=== PATIENT | female | born 1965 | race Caucasian/White ===

== ENCOUNTER → 2019-04-17 10:57 | Outpatient (CLI) | payer OTHER, SELFPAY ==
--- NOTE | ~2019-04-17 | MR_ITS ---
EXAMINATION: MR brain/brain stem wo/w con DATE: 04/17/2019 12:13 INDICATION: Headache. TECHNIQUE: Magnetic resonance imaging (MRI) of the brain and brainstem was performed without and with 18 mL MultiHance intravenous contrast. Sequences included sagittal and axial T1-weighted FSE, axial diffusion-weighted FS EPI, axial T2*-weighted GRE, axial T2-weighted FLAIR Propeller, and axial T2-we ighted Propeller. Postcontrast sequences included axial and coronal T1-weighted FSE. Apparent diffusi on coefficient (ADC) maps were created. COMPARISON: None. FINDINGS: There is a small acute infarct in right parietal lobe. There are scattered areas of nonspec ific increased T2-weighted signal intensity in the cerebral white matter, which is within normal limi ts for the patient's age. There is no intracranial hemorrhage or abnormal mass lesion. The ventricles are normal in size. The mastoid air cells are normal. There is mild mucosal thickening in the parana vidhya sinuses. The orbits are normal. IMPRESSION: 1. Small acute infarct in right parietal lobe. Reviewed, dictated and finalized at location A.
[2019-04-17 11:49] LABS: Estimated Glomerular Filt Rate > 60
== END ==
PROVIDERS: PCP Internal Medicine; Visit Provider Physician Assistant Medical
DX: R51 Headache (principal); R20.2 Paresthesia of skin
CPT/HCPCS: 36415; 70553; A9577

== ENCOUNTER → 2019-04-20 11:45 | Outpatient (CLI) | payer OTHER, SELFPAY ==
--- NOTE | ~2019-04-20 | US_ITS ---
EXAMINATION: US carotid duplex BI EXAM DATE: 04/20/2019 12:11 INDICATION: Headaches. Stroke. TECHNIQUE: Grayscale, color and pulsed Doppler images of the cervical carotid arteries were obtained . The degree of vessel stenosis is placed in one of the following categories: normal, <50% stenosis, 50-69% stenosis, >=70% stenosis but less than near-occlusion, near-occlusion, or occlusion. Note that percent stenosis relative to normal distal artery lumen diameter is indirectly measured from velocit y measurements as described by Nishant, et al. Radiology 2003; 229:340-346. There is no prior study fo r comparison. FINDINGS: RIGHT SIDE: Right common carotid artery peak systolic velocity (PSV in cm/s): 89 Right bulb/internal carotid artery peak systolic velocity (PSV in cm/s): 124 Right internal carotid artery end diastolic velocity (EDV in cm/s): 45 Right ICA/CCA peak systolic ratio: 1.4 Right external carotid artery peak systolic velocity (PSV in cm/s): 100 Right vertebral artery antegrade flow: yes There is no focal plaque identified. Incidental note made of right thyroid nodule; consider follow-up ultrasound for risk stratification LEFT SIDE: Left common carotid artery peak systolic velocity (PSV in cm/s): 141 Left bulb/internal carotid artery peak systolic velocity (PSV in cm/s): 106 Left internal carotid artery end diastolic velocity (EDV in cm/s): 34 Left ICA/CCA peak systolic ratio: 0.8 Left external carotid artery peak systolic velocity (PSV in cm/s): 107 Left vertebral artery antegrade flow: yes There is no focal plaque identified. IMPRESSION: 1. Normal right internal carotid artery. 2. Normal left internal carotid artery. 3. Incidental right thyroid lobe nodule; consider ultrasound for risk stratification. Reviewed, dictated and finalized at location B. IMPRESSION: 1. Normal right internal carotid artery. 2. Normal left internal carotid artery. 3. Incidental right thyroid lobe nodule; consider ultrasound for risk stratifi cation.
== END ==
PROVIDERS: Visit Provider Physician Assistant Medical
DX: I63.9 Cerebral infarction, unspecified (principal); R51 Headache; E04.1 Nontoxic single thyroid nodule
CPT/HCPCS: 93880

== ENCOUNTER → 2019-05-16 10:41 | Outpatient (CLI) | payer OTHER, SELFPAY ==
--- NOTE | ~2019-05-16 | MM_ITS ---
EXAMINATION: MM screening ja BI w joseph HISTORY: Screening mammogram TECHNIQUE: Craniocaudal and mediolateral oblique 3-D tomosynthesis images were obtained and synthetic 2-D images were generated. CAD analysis was submitted and interpreted. COMPARISON: 03/23/2005 right breast ultrasound examination: Reported negative bilateral digital screening mammogram: Not available from the archive BREAST PARENCHYMAL COMPOSITION: There are scattered areas of fibroglandular density. FINDINGS: There is no evidence of suspicious mass, calcification, or architectural distortion to sugg est malignancy in either breast. There has been no suspicious interval change. IMPRESSION: 1. No mammographic evidence of malignancy. 2. Recommend routine screening mammography in one year. BI-RADS Category 1: Negative Reviewed, dictated and finalized at location A.
--- NOTE | ~2019-05-16 | US_ITS ---
EXAMINATION: US thyroid DATE: 05/16/2019 11:14 INDICATION: Right thyroid nodule. TECHNIQUE: Multiple ultrasound images of the thyroid were obtained. COMPARISON: None. FINDINGS: The right thyroid lobe measures 5.1 x 1.7 x 1.8 cm. The left thyroid lobe measures 4.3 x 1 0.5, 0.7 cm. In the right thyroid lobe, there is a 2.5 cm solid, hypoechoic, jrslt-ylho-hpol nodule with smoo th margin without echogenic foci (TI-RADS TR4). In the right thyroid lobe, there is a 3 mm solid, hy poechoic, lpgwf-pcqy-ewbu nodule with smooth margin without echogenic foci (TR4). IMPRESSION: 1. Thyroid nodules. Ultrasound-guided fine needle aspiration of the 2.5 cm right thyroid nodule is re commended. Reviewed, dictated and finalized at location A. IMPRESSION: 1. Thyroid nodules. Ultrasound-guided fine needle aspiration of the 2.5 cm righ t thyroid nodule is recommended.
== END ==
PROVIDERS: PCP Internal Medicine; Visit Provider Physician Assistant Medical
DX: Z12.31 Encounter for screening mammogram for malignant neoplasm of breast (principal); E04.2 Nontoxic multinodular goiter
CPT/HCPCS: 76536; 77063; 77067

== ENCOUNTER 2020-10-24 02:44 | Day surgery (SDC) | payer OTHER, SELFPAY ==
[2020-10-10 14:19] VITALS: BMI 35.0
[2020-10-24 12:22] VITALS: BP 146/81; PULSE 95; RESP 18; TEMP 36.2; O2SAT 100; BMI 34.9
--- NOTE | 2020-10-24 12:38 | WPDANESEPPF ---
Anes - Initial Pre Proc Eval Procedure: Operation Date: 10/24/20 13:30 Proposed Procedures p Esophagogastroduodenoscopy - Roderick Morel MD Date/Time: 10/24/20 12:38 Surgeon: Roderick Morel MD Pre Op Diagnosis: dyspepsia Patient Data Age: 54 Gender: F Height: 1.65 m Weight: 95.4 kg Last Vital Signs Temp 97.2 F L 10/24/20 12:22 Pulse 95 10/24/20 12:22 Resp 18 10/24/20 12:22 BP 146/81 H 10/24/20 12:22 Pulse Ox 100 10/24/20 12:22 Allergies Allergy/AdvReac Type Severity Reaction Status Date / Time No Known Allergies Allergy Verified 10/24/20 12:20 Home Medications Medication Instructions Recorded Confirmed Type aspirin 325 mg PO DAILY 10/10/20 10/10/20 History atorvastatin 40 mg PO DAILY 10/10/20 10/10/20 History ferrous sulfate 325 mg PO DAILY 10/10/20 10/10/20 History imipramine HCl 10 mg PO DAILY 10/10/20 10/10/20 History levothyroxine [Tirosint] 75 mcg PO DAILY 10/10/20 10/10/20 History omeprazole 40 mg PO DAILY 10/10/20 10/10/20 History Patient hx anesthesia problems: none Family hx anesthesia problems: none PMFSH Surgical History Surgical History History of hysterectomy Social History Social History Smoking status: Current every day smoker Alcohol intake: current Alcohol use details: socially Substance use: never Substance use type: does not use Living arrangements: with family Spiritual care concerns: No Anes - Eval Final PreProcedure Day of Procedure 10/24/20 12:38 Patient weight: obese Heart: regular rate and rhythm Lungs: clear to auscultation Airway: Mallampati scale class II Neurological: alert and oriented Last oral intake: >/= 8 hours ASA classification: II Emergent: no Anesthetic plan: proceed Anesthesia type and monitoring: general GIVS and standard monitoring Informed Consent: The patient's anesthetic plan and its attendant risks and benefits were discussed with the patient/family/POA. Questions were solicited and answers provided to the satisfaction of the patient/family/POA.
[2020-10-24] MEDS: LACTATED RINGERS 1,000 ML 150 ML IV CONT (12:54)
--- NOTE | 2020-10-24 12:56 | P.CONGI_ITS ---
Assessment and Plan Assessment and plan (1) Dyspepsia: Code(s): R10.13 - Epigastric pain Status: Acute Assessment and Plan: patient appears to have acid indigestion burning epigastric pain. Poorly responsive to omeprazole 40mg p.o. daily. Associated with spicy food intake. Plan is for EGD to assess more thoroughly further recommendations will be given after EGD. GI Consult Note Consult date/time: 10/24/20 12:56 HPI: Franca Ansari is a 54 year old female Presents because of abdominal pain. Patient reports a 4 month history of a burning mid abdominal pain. This is worse with spicy foods. She has tried omeprazole 40mg p.o. daily supplemented with [id number] Tums or other antacids with only minimal improvement of symptoms. She has normal bowel movements. She has no nausea or vomiting. She denies any dysphagia or weight loss. Family history is noncontributory because of this burning pain she presents today for further investigation. Review of Systems Review of Systems: All systems reviewed & are unremarkable except as noted in HPI and below [facility] Surgical History Surgical History History of hysterectomy Social History Social History Smoking status: Current every day smoker Alcohol intake: current Alcohol use details: socially Substance use: never Substance use type: does not use Living arrangements: with family Spiritual care concerns: No Meds Home Medications and Allergies Home Medications Medication Instructions Recorded Confirmed Type aspirin 325 mg PO DAILY 10/10/20 10/10/20 History atorvastatin 40 mg PO DAILY 10/10/20 10/10/20 History ferrous sulfate 325 mg PO DAILY 10/10/20 10/10/20 History imipramine HCl 10 mg PO DAILY 10/10/20 10/10/20 History levothyroxine [Tirosint] 75 mcg PO DAILY 10/10/20 10/10/20 History omeprazole 40 mg PO DAILY 10/10/20 10/10/20 History Allergies Allergy/AdvReac Type Severity Reaction Status Date / Time No Known Allergies Allergy Verified 10/24/20 12:20 Vital Signs Vital Signs - 24 hr 10/24/20 12:22 Temperature 97.2 F L Pulse Rate 95 Respiratory Rate 18 Blood Pressure 146/81 H Pulse Oximetry 100 Exam Narrative: Physical exam reveals patient to be alert. Vital signs stable. HEENT exam is unremarkable. Patient is anicteric. Lungs are clear to auscultation and percussion. Heart is without murmur or extra sounds. Abdominal exam bowel sounds are present soft nontender with no hepatosplenomegaly
[2020-10-24 13:15] VITALS: BP 114/72; PULSE 95; RESP 18; O2SAT 100
[2020-10-24 13:25] VITALS: BP 108/72; PULSE 98; RESP 18; O2SAT 100
[2020-10-24 13:35] VITALS: BP 126/88; PULSE 83; RESP 27; O2SAT 100
== END 2020-10-24 13:55 | disposition home or self-care (01) ==
PROVIDERS: PCP Internal Medicine; Visit Provider Internal Medicine Gastroenterology
PROC: 0DJ08ZZ Inspection of Upper Intestinal Tract, Via Natural or Artificial Opening Endoscopic (ICD-10-PCS; CPT 43235; principal; 2020-10-24 13:30)
DX: K30 Functional dyspepsia (principal); Z79.82 Long term (current) use of aspirin; E66.9 Obesity, unspecified; Z68.35 Body mass index [BMI] 35.0-35.9, adult; F17.200 Nicotine dependence, unspecified, uncomplicated
CPT/HCPCS: 43239; 87081; J2001; J2704; J7120